=== PATIENT | male | born 1990 | race Caucasian/White ===

== ENCOUNTER 2016-12-06 14:43 | Emergency (ER) | payer OTHER ==
[~2016-12-06] VITALS: Ht 175.3 cm; Wt 117.9 kg
[~2016-12-06 14:43] MED LIST: BUPR10TASR PO; BUPR150T3 PO; CYCL5TA PO; HYZA50TA2 PO; LEXA1TAB PO; NEXI40CA PO; SERT50TA PO; TOPA100T8 PO; TRAZ50TA4 PO; TRAZO50TA PO
[2016-12-06] MEDS ORDERED: ALBU83IN INH (15:12)
[2016-12-06] MEDS ORDERED: GABA-283 PO (15:12)
[2016-12-06] MEDS ORDERED: ADV250INH INH (15:12)
--- NOTE | 2016-12-06 17:00 | REP ---
Chest two views HISTORY: Cough Comparison: 01/17/2016 The lungs are clear. The heart is normal in size. The pulmonary vasculature is normal in appearance. The bony structure is intact. IMPRESSION: No acute disease. Signed by Jerad Van MD 12/06/2016 04:51 P
[2016-12-06] MEDS: ACETAMINOPHEN TAB 650MG DOSE (2X325MG) PO ONE (17:04)
[2016-12-06] MEDS: ALBUTEROL SULFATE 2.5 MG/0.5 ML INH NEB SOLN INH ONE (17:18)
[2016-12-06] MEDS ORDERED: MEDR4PAK PO (17:45)
[2016-12-06] MEDS ORDERED: DOXY-278 PO (17:45)
[2016-12-06 17:50] VITALS: BP 139/71
[2016-12-06] MEDS: DOXYCYCLINE HYCLATE 100 MG TAB PO ONE (17:54)
[2016-12-06] MEDS: predniSONE 20 MG TAB PO ONE (17:55)
== END 2016-12-06 18:04 | disposition home or self-care (01) ==
LOC: M ED 16:38
DX: J45.909 Unspecified asthma, uncomplicated (principal); F41.9 Anxiety disorder, unspecified; F33.9 Major depressive disorder, recurrent, unspecified; Z88.0 Allergy status to penicillin; Z79.899 Other long term (current) drug therapy; Z79.51 Long term (current) use of inhaled steroids